=== PATIENT | male | born 1955 | race Caucasian/White ===

== ENCOUNTER 2018-05-04 10:09 | Emergency (ER) | payer OTHER ==
[2018-05-04] MEDS ORDERED: NS 1,000 ML IV ONE (10:15)
--- NOTE | 2018-05-04 10:15 | EDPHY ---
HPI/HX/ROS/PE/MDM - Data Points Imaging: Discussed imaging studies w/ medical staff physician Radiologist, I viewed and interpreted images myself Narrative: CHIEF COMPLAINT: Chest pain / dizziness HPI: This patient is a 62 year-old male arriving via EMS. Per EMS report, he was found wandering in front of the house seeming altered. He reportedly complained of chest pain onset last night which felt liek an elephant sitting on his chest with 10/10 severity. He endorsed some dyspnea and denied any pertinent prior medical history or similar symptoms in the past. Vitals were stable in transport. During my interview, the patient states "I have never felt like this before, I do not know what's going on". He states he became lightheaded and dizzy last night but is not sure what time his symptoms began. The patient denies chest pain and states he called 911 for worsening symptoms. He denies any weakness or pain anywhere. When asked what year it is, he states that the date is 1955. Additionally, he states that his last visit to a physician was in 1956 , and that his symptoms originally began in 1956 when his father . He is unable to provide further history at this time. HPI difficult to obtain as patient is a poor historian and is not oriented to time. REVIEW OF SYSTEMS: Unable to reliably obtain secondary to AMS. Patient denies all complaints. PMH: Unknown. Per prior record review: hyponatremia, hypertension. SOCIAL HISTORY: Difficult to obtain. Patient denies drug abuse. States he lives with his "'s girlfriend." PHYSICAL EXAM: General:Patient is alert, in no acute distress. ENT:Eyes are normal to inspection. ENT inspection normal. Neck: Normal inspection. Full range of motion. Respiratory:No respiratory distress. Breath sounds normal bilaterally. Cardiovascular: Regular rate and rhythm. Strong peripheral pulses. Normal cap refill. Abdomen:The abdomen is nontender to palpation. There are no peritoneal signs. There are normal bowel sounds. Back: Normal to inspection. No tenderness to palpation. Skin: Normal color. No rash. Warm and dry. Extremities: Normal appearance. Full range of motion. Neuro: Disoriented to location and date. Normal motor function. Normal sensory function. Psych: Patient pleasant and cooperative but very unusual affect, provides inappropriate answers to questions. Denies hallucinations. (Ceferino Schroeder) ED Course: 62 year old male presents with altered mental status. His original complaint of chest pain to EMS was amended to dizziness upon his arrival. The patient is pleasant and cooperative but has a very unusual affect and provides inappropriate answers to questions. Plan for EKG, labs including CBC, chemistries, tox screen, troponin, coag, I-stat. Plan to administer 1L IV NS. EKG was ordered and interpreted by myself. Please see [facility] system for official reading. 10:28 Patient refuses IVF as he is worried they will make him confused. Troponin negative. 10:38 Patient is attempting to leave the emergency department and is requesting a ride home. Plan to transfer to a room with observation. Patient placed on detainer due to altered mental status. Plan for additional labs including EtOH. Plan for CT head, chest x-ray. CXR negative for acute processes. 11:[address] Sarmiento, radiologist. CT head negative for acute processes. Tox screen positive for marijuana. EtOH elevated at 14. 14:45 Consulted with mental health solid waste facility operator. Recommends continued evaluation. She suspects substance intoxication rather than psychiatric etiology at this time. (Ceferino Schroeder) 1820: Reassessed patient. The patient went outside looking for help this morning because "there was a lot of animosity and feelings that I wasn't right in my head" and "I had extreme chest pain." He now knows where he is, but still has difficulty coming up with the correct year and cannot tell me who contacted 911 today. Right now he says, "I feel as normal as I normally feel." He denies chest pain. I recommended admission for persistent altered mentation, but he says, "I don't feel that it' s a choice I can make. I don't feel that it's right for me to do that." "There' s things in the hospital that really cause me to have fear." His family attributes this reluctance to come into the hospital to the of his from lung cancer and their many visits to the hospital. He is comfortable waiting for lab work to return before leaving. [id number] at bedside believes his symptoms today are related to sleep deprivation. She lives with him. She states they are comfortable caring for him at home and getting him into a follow up appointment with his PCP. I have evaluated this patient 3 times in the emergency department. He seems to be gradually clearing but continues to have difficulty providing the correct year. Initially he told me that it was"1956". He is given the accurate year twice but has also stated that it is"2017". Otherwise he is fully oriented. He is able to explain to me what happened this morning and his description coincides with the history of present illness that was provided earlier to Dr. Schroeder. I reviewed his laboratory findings. Apparently the ammonia level that was ordered cannot be completed due to difficulty with laboratory equipment. I reviewed his chest x-ray and head CT. I have spoken at length with his family including his [id number], mother, and other family members. It is not clear whether not they believe he is significantly altered but they seem to think that he is a bit off of his baseline. 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 He works overnight. Family feels that he is likely sleep deprived. They tell me that in the past he was a heavy drinker but that he has cut back significantly. His blood alcohol was 14 earlier today but he is likely in the range of sobriety at this point in time. Drug screen is positive only for marijuana. I do feel that he has improved during the time that I have been dealing with him. However, I strongly recommended hospitalization for continued observation, to be certain that these symptoms resolved entirely and continue to look for any correctable etiology. Both the family and the patient are adamant on that he should not stay in the hospital. I do not feel that he has a danger to himself or to anyone else. I do not think that he needs a mental health evaluation. The patient and the family understand that it is unclear exactly what is going on and they are comfortable with this. They also understand that he can return at any time 0: Reassessed patient. Detainer lifted. (Jessica Veloz) MDM: This patient presents with altered mental status of unclear etiology. We performed an extensive workup including CT of the head, labs, chest x-ray and urine tox screen, all of which are negative except for signs of marijuana use. The patient lacks focal deficits but is completely disoriented to date as well as the reason why he is here in the emergency department. His report of various physical complaints changes quite frequently. I see no evidence of a stroke, sepsis, acute coronary syndrome, hyponatremia, renal failure. Given lack of obvious etiology, I think this may represent a mental health disorder versus possible substance abuse. I have asked the patient to be evaluated by mental health. The patient was signed out to Dr. Jessica Veloz at 3:00 p.m.. ( Ceferino Schroeder) - Data Points Imaging Results: Imaging Impressions Head CT 05/04/18 11:28 Impression: 1. No acute intracranial findings. If symptoms persist and clinical suspicion warrants, consider MRI. 2. Diffuse cerebral atrophy with periventricular and subcortical low attenuation consistent with chronic microvascular ischemic gliosis. Findings discussed with Ceferino Schroeder MD 05/04/2018 at 11:50. Chest X-Ray 05/04/18 11:56 Impression: 1. Mild interstitial prominence with hyperexpansion, suggesting COPD/emphysema. 2. Old healed rib fractures with age indeterminate mild thoracic compression fractures. Laboratory Results: Laboratory Results 05/04/18 10:09 05/04/18 10:09 05/04/18 05/04/18 05/04/18 15:49 12:25 12:25 WBC RBC Hgb POC Hgb Hct POC Hct MCV MCH MCHC RDW Plt Count MPV Neut % (Auto) Lymph % (Auto) [place] % (Auto) Eos % (Auto) Baso % (Auto) Nucleat RBC Rel Count Absolute Neuts (auto) Absolute Lymphs (auto) Absolute Monos (auto) Absolute Eos (auto) Absolute Basos (auto) Absolute Nucleated RBC Immature Gran % Immature Gran # PT INR APTT POC Sodium Sodium POC Potassium Potassium POC Chloride Chloride Carbon Dioxide Anion Gap POC BUN BUN Creatinine POC Creatinine Estimated GFR Glucose POC Glucose Calcium Ammonia 25.0 uMOL/L uMOL/L (9.0-30.0) POC Troponin I Urine Color PALE YELLOW Urine Appearance CLEAR Urine pH 7.0 (5.0-7.5) Ur Specific [place] 1.004 (1.002-1.030) Urine Protein NEGATIVE (NEGATIVE) Urine Ketones 1+ H (NEGATIVE) Urine Blood NEGATIVE (NEGATIVE) Urine Nitrate NEGATIVE (NEGATIVE) Urine Bilirubin NEGATIVE (NEGATIVE) Urine Urobilinogen NEGATIVE EU EU (0.2-1.0) Ur Leukocyte Esterase NEGATIVE (NEGATIVE) Urine Glucose NEGATIVE (NEGATIVE) Urine Opiates Screen NEGATIVE (NEGATIVE) Urine Barbiturates NEGATIVE (NEGATIVE) Ur Phencyclidine Scrn NEGATIVE (NEGATIVE) Ur Amphetamine Screen NEGATIVE (NEGATIVE) U Benzodiazepines Scrn NEGATIVE (NEGATIVE) Urine Cocaine Screen NEGATIVE (NEGATIVE) U Marijuana (THC) Screen NON-NEGATIVE H (NEGATIVE) Ethyl Alcohol 05/04/18 05/04/18 05/04/18 10:19 10:16 10:09 WBC RBC Hgb POC Hgb 16.3 gm/dL gm/dL (13.7-17.5) Hct POC Hct 48 % % (40-51) MCV MCH MCHC RDW Plt Count MPV Neut % (Auto) Lymph % (Auto) [place] % (Auto) Eos % (Auto) Baso % (Auto) Nucleat RBC Rel Count Absolute Neuts (auto) Absolute Lymphs (auto) Absolute Monos (auto) Absolute Eos (auto) Absolute Basos (auto) Absolute Nucleated RBC Immature Gran % Immature Gran # PT INR APTT POC Sodium 133 mEq/L L mEq/L (135-145) Sodium POC Potassium 3.3 mEq/L mEq/L (3.3-5.0) Potassium POC Chloride 95 mEq/L L mEq/L (97-110) Chloride Carbon Dioxide Anion Gap POC BUN 3 mg/dL L mg/dL (7-23) BUN Creatinine POC Creatinine 0.6 mg/dL L mg/dL (0.7-1.3) Estimated GFR Glucose POC Glucose 115 mg/dL H mg/dL (70-100) Calcium Ammonia POC Troponin I 0.02 ng/mL ng/mL (0.00-0.08) Urine Color Urine Appearance Urine pH Ur Specific [place] Urine Protein Urine Ketones Urine Blood Urine Nitrate Urine Bilirubin Urine Urobilinogen Ur Leukocyte Esterase Urine Glucose Urine Opiates Screen Urine Barbiturates Ur Phencyclidine Scrn Ur Amphetamine Screen U Benzodiazepines Scrn Urine Cocaine Screen U Marijuana (THC) Screen Ethyl Alcohol 14 mg/dL H mg/dL (0-10) 05/04/18 05/04/18 05/04/18 10:09 10:09 10:09 WBC 10.63 10^3/uL H 10^3/uL (3.80-9.50) RBC 4.92 10^6/uL 10^6/uL (4.40-6.38) Hgb 15.8 g/dL g/dL (13.7-17.5) POC Hgb Hct 43.7 % % (40.0-51.0) POC Hct MCV 88.8 fL fL (81.5-99.8) MCH 32.1 pg pg (27.9-34.1) MCHC 36.2 g/dL g/dL (32.4-36.7) RDW 12.9 % % (11.5-15.2) Plt Count 223 10^3/uL 10^3/uL (150-400) MPV 9.9 fL fL (8.7-11.7) Neut % (Auto) 79.7 % H % (39.3-74.2) Lymph % (Auto) 11.8 % L % (15.0-45.0) [place] % (Auto) 7.6 % % (4.5-13.0) Eos % (Auto) 0.1 % L % (0.6-7.6) Baso % (Auto) 0.4 % % (0.3-1.7) Nucleat RBC Rel Count 0.0 % % (0.0-0.2) Absolute Neuts (auto) 8.48 10^3/uL H 10^3/uL (1.70-6.50) Absolute Lymphs (auto) 1.25 10^3/uL 10^3/uL (1.00-3.00) Absolute Monos (auto) 0.81 10^3/uL H 10^3/uL (0.30-0.80) Absolute Eos (auto) 0.01 10^3/uL L 10^3/uL (0.03-0.40) Absolute Basos (auto) 0.04 10^3/uL 10^3/uL (0.02-0.10) Absolute Nucleated RBC 0.00 10^3/uL 10^3/uL (0-0.01) Immature Gran % 0.4 % % (0.0-1.1) Immature Gran # 0.04 10^3/uL 10^3/uL (0.00-0.10) PT 12.1 SEC SEC (12.0-15.0) INR 0.87 (0.83-1.16) APTT 26.1 SEC SEC (23.0-38.0) POC Sodium Sodium 135 mEq/L mEq/L (135-145) POC Potassium Potassium 3.5 mEq/L mEq/L (3.3-5.0) POC Chloride Chloride 96 mEq/L L mEq/L (97-110) Carbon Dioxide 22 mEq/l mEq/l (22-31) Anion Gap 17 mEq/L H mEq/L (8-16) POC BUN BUN 5 mg/dL L mg/dL (7-23) Creatinine 0.6 mg/dL L mg/dL (0.7-1.3) POC Creatinine Estimated GFR > 60 Glucose 101 mg/dL H mg/dL (70-100) POC Glucose Calcium 9.8 mg/dL mg/dL (8.5-10.4) Ammonia POC Troponin I Urine Color Urine Appearance Urine pH Ur Specific [place] Urine Protein Urine Ketones Urine Blood Urine Nitrate Urine Bilirubin Urine Urobilinogen Ur Leukocyte Esterase Urine Glucose Urine Opiates Screen Urine Barbiturates Ur Phencyclidine Scrn Ur Amphetamine Screen U Benzodiazepines Scrn Urine Cocaine Screen U Marijuana (THC) Screen Ethyl Alcohol Medications Given: Discontinued Medications Sodium Chloride (Ns) 1,000 mls @ 0 mls/hr IV EDNOW ONE; Wide Open PRN Reason: Protocol Stop: 05/04/18 10:16 Last Admin: 05/04/18 10:29 Dose: Not Given Lorazepam (Ativan) 1 mg PO EDNOW ONE Stop: 05/04/18 11:30 Last Admin: 05/04/18 13:06 Dose: Not Given Point of Care Test Results: Chemistry 05/04/18 05/04/18 10:19 10:16 POC Sodium 133 mEq/L L mEq/L (135-145) POC Potassium 3.3 mEq/L mEq/L (3.3-5.0) POC Chloride 95 mEq/L L mEq/L (97-110) POC BUN 3 mg/dL L mg/dL (7-23) POC Creatinine 0.6 mg/dL L mg/dL (0.7-1.3) POC Glucose 115 mg/dL H mg/dL (70-100) POC Troponin I 0.02 ng/mL ng/mL (0.00-0.08) ISTAT H&H 05/04/18 10:19 POC Hgb 16.3 gm/dL gm/dL (13.7-17.5) POC Hct 48 % % (40-51) General Initial Vital Signs: Initial Vital Signs Heart Rate 88 05/04/18 10:20 Respiratory Rate 16 05/04/18 10:20 Blood Pressure 165/94 H 05/04/18 10:20 O2 Sat (%) 93 05/04/18 10:20 O2 Delivery Mode Room Air Allergies/Adverse Reactions: No Known Allergies Allergy (Verified 05/04/18 10:49) Home Medications: Medication Instructions Recorded NK [No Known Home Meds] 05/04/18 Departure - Departure Disposition: Home, Routine, Self-Care Clinical Impression: Altered mental status Qualifiers: Altered mental status type: disorientation Qualified Code(s): R41.0 - Disorientation, unspecified Condition: Good Instructions: Altered Mental Status (ED) Additional Instructions: Follow up with Dr. Rodrigues tomorrow without fail for reevaluation. Bring lab reports from your visit today with you to that visit. The best 2 things you can do for your health are to quit smoking and stop drinking. Return to the ED for any worsening of condition. Referrals: CEFERINO RODRIGUES [Non Staff Provider ()] - As per Instructions Report Scribed for: Ceferino Schroeder Report Scribed by: Vero Soler Date of Report: 05/04/18 Time of Report: 14:35 Physician Review and Approval Statement: Portions of this note were transcribed by an ED scribe. I personally performed the history, physical exam, and medical decision making; and confirm the accuracy of the information in the transcribed note.
--- NOTE | 2018-05-04 10:23 | CPEKG ---
Heart Rate: 88 RR Interval: 682 P-R Interval: 172 QRSD Interval: 94 QT Interval: 400 QTC Interval: 484 P [place]: 83 QRS [place]: 38 T Wave [place]: 68 EKG Severity - BORDERLINE ECG - EKG Impression: SINUS RHYTHM EKG Impression: LOW VOLTAGE IN FRONTAL LEADS EKG Impression: BORDERLINE PROLONGED QT INTERVAL EKG Impression: PVC Electronically Signed By: Werner Lira 05-May-2018 16:36:20
[2018-05-04 10:37] LABS: PLATELET COUNT 223 10^3/uL (150-400)
[2018-05-04 11:02] LABS: INR 0.87 (0.83-1.16); PROTIME(PATIENT) 12.1 SEC (12.0-15.0)
[2018-05-04] MEDS ORDERED: LORazepam 1 MG TAB PO ONE (11:29)
[2018-05-04 20:05] VITALS: BP 158/96
== END 2018-05-04 20:10 | disposition home or self-care (01) ==
LOC: EDUNIT#
DX: R41.0 Disorientation, unspecified (principal); I10 Essential (primary) hypertension
CPT/HCPCS: 80305; 82435-PO; 82565-PO; 82947-PO; 84132-PO; 84295-PO; 84484-PO; 84520-PO; 85014-PO; G0480

== ENCOUNTER 2019-05-10 22:50 | Inpatient (IN) | payer BC, OTHER | END 2019-05-12 10:27 | disposition home or self-care (01) | LOC: F2N 05-11 02:00 ==